=== PATIENT | female | born 1940 | race Caucasian/White ===

== ENCOUNTER → 2017-05-18 | Outpatient (CLI) | payer MEDICARE ==
--- NOTE | 2017-05-19 10:52 | MM ---
Reason for exam: screening (asymptomatic). Last mammogram was performed 1 year and 2 months ago. History: Patient is postmenopausal. Family history of breast cancer in grandmother. Physical Findings: A clinical breast exam by your physician is recommended on an annual basis and results should be correlated with mammographic findings. MG 3D Screening Mammo W/Cad Bilateral CC and MLO view(s) were taken. Prior study comparison: March 03, 2016, bilateral MG 3d screening mammo w/cad. February 20, 2015, bilateral MG screening mammo w CAD. February 15, 2014, bilateral MG screening mammo w CAD. There are scattered fibroglandular densities. Finding: There are numerous typically benign round, regional and scattered calcifications in both breasts. There is a chronic nodularity in the right breast. There is no discrete abnormality. ASSESSMENT: Benign, BI-RAD 2 RECOMMENDATION: Routine screening mammogram of both breasts in 1 year.
== END | disposition home or self-care (01) ==
LOC: RADMAMWWP 04-09 09:31
PROVIDERS: ATTEND Internal Medicine
DX: Z12.31 Encounter for screening mammogram for malignant neoplasm of breast (principal)
CPT/HCPCS: 77063; 77067

== ENCOUNTER → 2017-06-17 | Outpatient (CLI) | payer MEDICARE ==
--- NOTE | 2017-06-17 12:44 | EST ---
EXERCISE STRESS DATE OF SERVICE: 06/17/2017 AGE: 76 SEX: Female HT: 5'5" WT: 194 pounds PROTOCOL: CARDIOLITE TREADMILL STAGE: I DURATION OF EXERCISE: 4 minutes HEART RATE REST: 73 BLOOD PRESSURE REST: 159/86 MAXIMUM HEART RATE ACHIEVED: 139 MAXIMUM BLOOD PRESSURE: 217/90 85% MPHR: 122 100% MPHR: 144 METS: 5.8 INDICATIONS: Chest pain. CLINICAL INFORMATION: The patient was exercised for a total period of 4 minutes. A peak heart rate of 139, was achieved. Maximum blood pressure of 217/90 mmHg was noted. The test was terminated because patient got tired. Her resting EKG shows normal sinus rhythm with normal ID interval and QRS duration and normal ST-T waves. Occasional PACs were noted. No ST- segment depression suggestive of ischemia was noted. FINAL IMPRESSION: 1. This exercise test is not suggestive of ischemia. 2. The patient's exercise tolerance is average. 3. The results of the nuclear study will follow. EBONY / IJN: [id number] /
--- NOTE | 2017-06-17 13:07 | NM ---
EXAMINATION TYPE: NM stress cardiolite complete DATE OF EXAM: 06/17/2017 COMPARISON: NONE HISTORY: Chest pain TECHNIQUE: After the intravenous administration of 10.99 mCi Tc 99m Sestamibi - Rest images obtained 45 minutes post injection. The patient exercised using a NIYA protocol and 1 minute prior to peak exercise was injected with 27.1 mCi Tc 99m Sestamibi - Stress images obtained 5 minutes post injecti on. FINDINGS: Targeted heart rate was achieved during performance of the study. Review of stress and rest SPECT royer ges demonstrates some decreased residual uptake along the lateral wall the left ventricle on stress a s compared to rest images. Gated analysis shows normal wall motion with an estimated left ventricula r ejection fraction of 56 %. IMPRESSION: Findings suggest stress induced left ventricular myocardial ischemia as described. A Yellow message has been communicated to Kendall Maldonado MD via the [employer] system on 06/17/2017 1:04 PM, Message ID [id number].
== END | disposition home or self-care (01) ==
LOC: RADNMMAIN 07:47
PROVIDERS: ATTEND Internal Medicine
DX: R07.89 Other chest pain (principal)
CPT/HCPCS: 93017; 78452; A9500

== ENCOUNTER → 2017-06-25 | Day surgery (SDC) | payer MEDICARE ==
[2017-06-23 15:48] VITALS: BMI 32.1
[~2017-06-25] MED LIST: ALPRAZolam 0.25 MG TAB PO PRN; ASPIRIN 325 MG TAB PO ONE; ASPIRIN 81 MG PO SCH; HEPARIN SODIUM 1,000 UN/ML (10ML VL) ONE; IOHEXOL 350 MG/ML (PER ML) 100ML BTL INJ ONE; LIDOCAINE 2% INJ 20 MG/ML (20 ML MDV) ONE; LIDOCAINE 2% INJ 20 MG/ML SQ ONE; MIDAZOLAM 2 MG/2 ML VIAL IVP ONE; MIDAZOLAM 2 MG/2 ML VIAL ONE; NITROGLYCERIN SL TABS 0.4 MG TAB SUBLINGUAL ONE; SODIUM CHLORIDE 0.9% 1,000 ML IV SCH; SODIUM CHLORIDE 0.9% 1,000 ML in EMPTY BAG 1 BAG IV ONE; VERAPAMIL 2.5 MG/ML 2 ML AMP ONE; diphenhydrAMINE 50 MG/ML 1 ML VIAL IVP ONE; diphenhydrAMINE 50 MG/ML 1 ML VIAL ONE
[2017-06-25 08:34] VITALS: RESP 18
[2017-06-25] MEDS: VERAPAMIL SYRINGE (5 MG/10 ML) INTRAARTER ONE ×2 (10:05→10:16)
--- NOTE | 2017-06-25 10:52 | CC ---
CARDIAC CATHETERIZATION REPORT DATE OF SERVICE: 06/25/2017. PROCEDURE: Left heart catheterization and coronary angiography. PERFORMED BY: Dr. Hector Espitia CLINICAL INFORMATION: Mrs. Mitali Mohamud is a 76-year-old lady with a history of hypertension, hyperlipidemia, exertional chest pressure and shortness of breath. Because of these symptoms, she had a stress test, walked for over 4-1/2 minutes, developed shortness of breath but had lateral wall reversible defect. Therefore, was advised coronary angiography. Risks, benefits, options, rationale were explained to the patient and her . PROCEDURE NOTE: Under local anesthesia and strict aseptic precautions, a 6-Slovak introducer was placed in the right radial artery. Using an Ultimate 1 catheter, I performed selective coronary angiography and a pigtail catheter was used to check LV pressures. The LV gram was not performed. The catheter and sheath was taken out and TR band applied as per protocol and patient was sent to the room in a stable condition. She has no significant obstructive CAD. She was advised medical therapy with risk factor modification. She will be discharged later on today. The cardiac cath findings were discussed with the patient and her family members. I will see her in the office tomorrow in the afternoon. MODERATE CONSCIOUS SEDATION TIME: Moderate conscious sedation time 16 minutes. Patient was monitored closely. Oxygen saturation and vital signs were monitored closely. CARDIAC CATHETERIZATION FINDINGS: The left ventricular end-diastolic pressure was about 12 mmHg and there was no gradient across the aortic valve. CORONARY ANGIOGRAPHY FINDINGS: 1. RIGHT CORONARY ARTERY: Dominant vessel. No significant disease. Distally gives off a large PDA, a smaller PLV, supplies a fair amount of myocardium, has minor irregularities but no significant disease is noted. 2. LEFT MAIN CORONARY ARTERY: This is a long patent disease-free vessel that bifurcates into LAD and circumflex. 3. LEFT ANTERIOR DESCENDING CORONARY ARTERY: A good caliber vessel, extends along the anterior wall. It gives off a very high diagonal branch proximally and the diagonal again divides into 2 branches and actually a septal branch comes off from the diagonal. Interestingly, and then the LAD continues all the way to the apex giving additional septal branches. The LAD has about a mild 30% narrowing in the midportion. The diagonal which is of a good caliber and fair distribution has no significant disease. LAD runs all the way towards the apex, supplies a fair amount of myocardium. 4. LEFT POSTERIOR CIRCUMFLEX CORONARY ARTERY: Technically this is a nondominant vessel, gives off a first obtuse marginal, then a second obtuse marginal and continues distally as a posterolateral branch. There is no significant disease in the nondominant circumflex. 5. LEFT VENTRICULOGRAM: This was not performed. FINAL IMPRESSION: This patient has a right dominant system. Normal filling pressures, has mild irregularities. No significant disease. There is about a 30% mid LAD lesion of a diffuse type. There is no significant CAD and filling pressures are acceptable. RECOMMENDATIONS: Findings were discussed with the patient and family. I expect that she will be discharged later on today and I will see her in the office tomorrow. I already discussed the results by phone with Dr. Maldonado, the admitting doctor. MMRANDOLPH / SHELIA: [id number] /
[2017-06-25 11:58] VITALS: TEMP 97.8
[2017-06-25 15:24] VITALS: BP 135/65; PULSE 60
== END ==
LOC: CATHCVL 07:37
PROVIDERS: ATTEND Internal Medicine Interventional Cardiology
DX: I25.110 Atherosclerotic heart disease of native coronary artery with unstable angina pectoris (principal); I10 Essential (primary) hypertension; E78.5 Hyperlipidemia, unspecified; E78.00 Pure hypercholesterolemia, unspecified; Z79.82 Long term (current) use of aspirin; Z79.899 Other long term (current) drug therapy
CPT/HCPCS: 93458; C1894; J2001; J2250; J1200; Q9967; J1644

== ENCOUNTER → 2018-06-09 | Outpatient (CLI) | payer MEDICARE ==
--- NOTE | 2018-06-13 08:12 | MM ---
Reason for exam: screening (asymptomatic). Last mammogram was performed 1 year and 1 month ago. History: Patient is postmenopausal. Family history of breast cancer in grandmother. Physical Findings: A clinical breast exam by your physician is recommended on an annual basis and results should be correlated with mammographic findings. MG 3D Screening Mammo W/Cad Bilateral CC and MLO view(s) were taken. Prior study comparison: May 18, 2017, bilateral MG 3d screening mammo w/cad. March 03, 2016, bilateral MG 3d screening mammo w/cad. There are scattered fibroglandular densities. No significant changes when compared with prior studies. ASSESSMENT: Benign, BI-RAD 2 RECOMMENDATION: Routine screening mammogram of both breasts in 1 year.
== END | disposition home or self-care (01) ==
LOC: RADMAMWWP 10:15
PROVIDERS: ATTEND Internal Medicine
DX: Z12.31 Encounter for screening mammogram for malignant neoplasm of breast (principal)
CPT/HCPCS: 77063; 77067

== ENCOUNTER 2018-08-19 15:03 | Emergency (ER) | payer MEDICARE ==
--- NOTE | 2018-08-19 17:09 | XR ---
EXAMINATION TYPE: XR hand complete LT DATE OF EXAM: 08/19/2018 COMPARISON: NONE HISTORY: Cat bite at the thumb TECHNIQUE: 3 views FINDINGS: There is spurring at the first carpometacarpal joint. I see no fracture nor dislocation. Th ere is narrowing of the IP joint spaces with spurring. This is more noticeable at the DIP joint of th e index finger and middle finger. There is no sign of a foreign body. IMPRESSION: Osteoarthritis. No fracture seen.
[2018-08-19] MEDS ORDERED: AMOXIC-POT CLAV 875-125MG 1 EACH TAB PO STA (17:20)
[2018-08-19 17:37] VITALS: BP 130/78; PULSE 84; RESP 18; TEMP 98
--- NOTE | 2018-08-19 17:44 | ED ---
Animal Bite HPI - General Chief Complaint: Animal Bite Stated Complaint: Cat bite Time Seen by Provider: 08/19/18 15:20 Source: patient Mode of arrival: ambulatory Limitations: no limitations - History of Present Illness Initial Comments: Patient is 70-year-old female presenting to the emergency department after a cat bite. Patient states that incident occurred this morning when she was trying to pet her cat and it bit her on the anterior aspect of the proximal left thumb. She reports mild pain that is exacerbated with pressing on it. She reports pain with wrist flexion and movement of the thumb. She reports increased pain and swelling as time went on. This is her cat and she states the cat is up-to-date with her vaccinations. Her tetanus shot is up-to-date. Patient states she has no concern for rabies. - Related Data Home Medications Medication Instructions Recorded Confirmed Atorvastatin [Lipitor] 10 mg PO DAILY 06/23/17 06/25/17 Enalapril [Vasotec] 20 mg PO BID 06/23/17 06/25/17 Hydrochlorothiazide [Hydrodiuril] 25 mg PO DAILY 06/23/17 06/25/17 Metoprolol Tartrate [Lopressor] 12.5 mg PO DAILY 06/23/17 06/25/17 Multivit with Calcium,Iron,Min 1 each PO DAILY 06/23/17 06/25/17 [Women's Multivitamin] amLODIPine [Norvasc] 10 mg PO DAILY 06/23/17 06/25/17 Previous Rx's Medication Instructions Recorded Aspirin 81 mg PO DAILY chew 06/25/17 Amoxicillin/Potassium Clav 1 tab PO Q12HR #20 tab 08/19/18 [Augmentin 875-125 Tablet] Allergies Allergy/AdvReac Type Severity Reaction Status Date / Time No Known Allergies Allergy Verified 08/19/18 15:14 Review of Systems ROS Statement: Those systems with pertinent positive or pertinent negative responses have been documented in the HPI. ROS Other: All systems not noted in ROS Statement are negative. Past Medical History Past Medical History: Hyperlipidemia, Hypertension Additional Past Medical History / Comment(s): recent stress test, occasional chest heaviness recently History of Any Multi-Drug Resistant Organisms: None Reported Past Surgical History: Section, Orthopedic Surgery Additional Past Surgical History / Comment(s): C/S x2, D & C, liposuction, wrist surg & cyst removed from foot Past Anesthesia/Blood Transfusion Reactions: No Reported Reaction Past Psychological History: No Psychological Hx Reported Smoking Status: Never smoker Past Alcohol Use History: Occasional Past Drug Use History: None Reported - Past Family History Father Family Medical History: Cancer General Exam Limitations: no limitations General appearance: alert, in no apparent distress Head exam: Present: atraumatic, normocephalic, normal inspection Eye exam: Present: normal appearance. Absent: conjunctival injection ENT exam: Present: normal exam Neck exam: Present: normal inspection Respiratory exam: Present: normal lung sounds bilaterally. Absent: respiratory distress, wheezes, rales, rhonchi, stridor Cardiovascular Exam: Present: regular rate, normal rhythm, normal heart sounds Left Shoulder Exam: Present: normal inspection, full ROM Upper Arm exam: Present: normal inspection, full ROM Elbow exam: Present: normal inspection, full ROM Forearm Wrist exam: Present: normal inspection, full ROM. Absent: tenderness, swelling, abrasion, laceration Hand Wrist exam: Present: tenderness (Anterior aspect of proximal thumb. Tenderness on palpation), swelling (Local swelling), laceration (Puncture wound on the anterior aspect of proximal thumb), erythema (Local edema) Hand L/R Front: 1 - laceration (Puncture wound, cat bite) Neuro motor exam: Present: wrist extension intact, thumb opposition intact, thumb IP flexion intact (Limited flexion due to pain) Neurosensory exam: Present: 2-point discrimination Vascular: Present: normal capillary refill, radial pulse. Absent: vascular compromise Skin exam: Present: warm Course Vital Signs 08/19/18 15:12 Temperature 98.1 F Pulse Rate 80 Respiratory 20 Rate Blood Pressure 168/85 O2 Sat by Pulse 99 Oximetry Medical Decision Making - Medical Decision Making Patient is 70-year-old female presenting to the emergency department for a cat Bite on the left hand. X-ray of the left hand was obtained and is unremarkable for fracture. Patient was given Augmentin in the emergency department. Patient was prescribed a 10 day dose of Augmentin. Patient advised to follow up with primary care or return to emergency department if symptoms worsen. Case discussed with physician Disposition Clinical Impression: Bite by animal, Cat bite Disposition: HOME SELF-CARE Condition: Stable Instructions (If sedation given, give patient instructions): Animal Bite (ED) Additional Instructions: Please follow up with primary care or return to the emergency department if symptoms worsen. Continue taking antibiotic as indicated. Is patient prescribed a controlled substance at d/c from ED?: No Referrals: Kendall Maldonado MD [Primary Care Provider] - 1-2 days Time of Disposition: 17:53
== END 2018-08-19 17:37 | disposition home or self-care (01) ==
LOC: EC 15:03
DX: S61.032A Puncture wound without foreign body of left thumb without damage to nail, initial encounter (principal); E78.5 Hyperlipidemia, unspecified; I10 Essential (primary) hypertension; Z79.899 Other long term (current) drug therapy; W55.01XA Bitten by cat, initial encounter; Y93.89 Activity, other specified
CPT/HCPCS: 99283

== ENCOUNTER → 2019-11-02 | Outpatient (CLI) | payer MEDICARE ==
--- NOTE | 2019-11-02 16:36 | BD ---
EXAMINATION TYPE: Axial Bone Density DATE OF EXAM: 11/02/2019 COMPARISON: 10.07.2010 CLINICAL HISTORY: 79 YR OLD FEMALE....ICD-10 CODE: POST MENOPAUSAL Height: 62.5 Weight: 191 FRAX RISK QUESTIONS: Family History (Parent hip fracture): YES, SISTERS BOTH RISK FACTORS HISTORY OF: HX OF RT HAND FINGER A TEEN Family History of Osteoporosis: YES, SISTERS X2 WITH HIP FXS Active: YES Postmenopausal woman: YES AT 54 YRS OLD Hyperparathyroidism: NO Adrenal Insufficiency: NO MEDICATIONS: Additional Medications: BP MEDS, LIPITOR, VIT D, Additional History: HYPERTENSION, CHOLESTEROL, BORDERLINE DIABETIC, HX OF HEART CATHETERIZATION EXAM MEASUREMENTS: Bone mineral densitometry was performed using the [employer] System. Bone mineral density as measured about the Lumbar spine is: ----- L1-L4(G/cm2): 1.466 T Score Values are as follows: ----- L1: 1.6 ----- L2: 2.7 ----- L3: 2.8 ----- L4: 2.1 ----- L1-L4: 2.4 Bone mineral density has: Increased 7.8% since study of: 10.07.2010 Bone mineral density about the R hip (g/cm2): 1.049 Bone mineral density about the L hip (g/cm2): 1.045 T Score values are as follows: -----R Neck: -0.6 -----L Neck: -1.0 -----R Total: 0.3 -----L Total: 0.5 Bone mineral density has: Decreased -3.8% since study of: 10.07.2010 FRAX%s: THERE IS A 17.0% CHANCE FOR A MAJOR OSTEOPOROTIC FX AND A 7.9% FOR HIP.....PROBABILITY FOR FX IN 10 YRS TIME IMPRESSION: Normal (Values between +1 and -1 indicate normal bone mass). However, note that measurements border o n osteopenia at the left hip. Consider repeating this study in 5 years or sooner if there is some new clinical indication. NOTE: T-SCORE=SD OF THE YOUNG ADULT MEAN.
--- NOTE | 2019-11-03 09:52 | MM ---
Reason for exam: screening (asymptomatic). Last mammogram was performed 1 year and 5 months ago. History: Patient is postmenopausal. Family history of breast cancer in grandmother. Physical Findings: A clinical breast exam by your physician is recommended on an annual basis and results should be correlated with mammographic findings. MG 3D Screening Mammo W/Cad Bilateral CC and MLO view(s) were taken. Prior study comparison: June 09, 2018, bilateral MG 3d screening mammo w/cad. May 18, 2017, bilateral MG 3d screening mammo w/cad. There are scattered fibroglandular densities. Benign appearing bilateral calcifications. There is chronic nodularity in the right breast, stable. No significant changes when compared with prior studies. ASSESSMENT: Benign, BI-RAD 2 RECOMMENDATION: Routine screening mammogram of both breasts in 1 year.
== END | disposition home or self-care (01) ==
LOC: RADMAMWWP 10:19
PROVIDERS: ATTEND Internal Medicine
DX: Z12.31 Encounter for screening mammogram for malignant neoplasm of breast (principal); M85.88 Other specified disorders of bone density and structure, other site; Z78.0 Asymptomatic menopausal state
CPT/HCPCS: 77063; 77067; 77080

== ENCOUNTER → 2020-09-09 | Outpatient (CLI) | payer MEDICARE ==
--- NOTE | 2020-09-09 11:21 | US ---
EXAMINATION TYPE: US abdomen complete DATE OF EXAM: 09/09/2020 COMPARISON: NONE CLINICAL HISTORY: R74.01 Elevation of levels of liver transaminase l. Elevated liver enzymes EXAM MEASUREMENTS: Liver Length: 14.7 cm Gallbladder Wall: 0.2 cm CBD: 0.3 cm Spleen: 9.8 cm Right Kidney: 11.8 x 3.4 x 3.4 cm Left Kidney: 11.9 x 4.8 x 5.2 cm technical limitations due to large amount of overlying bowel content Pancreas: visualized portions appear wnl. The tail and head of the pancreas are poorly visualized. Liver: appears wnl Gallbladder: no evidence of stones Evidence for sonographic Hardin's sign: no CBD: appears wnl Spleen: wnl Right Kidney: no evidence of hydronephrosis Left Kidney: no evidence of hydronephrosis Upper IVC: wnl Abd Aorta: wnl The liver is homogenous. The intrahepatic portion of the IVC and proximal abdominal aorta are within normal limits. There is no evidence of cholelithiasis. Common bile duct is unremarkable. The visu alized portions of the pancreas are homogenous. The spleen is unremarkable. Kidneys are symmetric a nd free of hydronephrosis. No renal lesions are seen. IMPRESSION: 1. Study is limited due to overlying bowel gas. The head and tail of the pancreas are poorly visualiz ed. Otherwise unremarkable study.
== END | disposition home or self-care (01) ==
LOC: RADUSWWP 10:10
PROVIDERS: ATTEND Family Medicine
DX: R74.01 Elevation of levels of liver transaminase levels (principal); R74.8 Abnormal levels of other serum enzymes
CPT/HCPCS: 76700

== ENCOUNTER → 2020-11-04 | Outpatient (CLI) | payer MEDICARE ==
--- NOTE | 2020-11-05 12:34 | MM ---
Reason for exam: screening (asymptomatic). Last mammogram was performed 1 year ago. History: Patient is postmenopausal and history of other cancer. Family history of breast cancer in grandmother. Physical Findings: A clinical breast exam by your physician is recommended on an annual basis and results should be correlated with mammographic findings. MG 3D Screening Mammo W/Cad Bilateral CC and MLO view(s) were taken. Prior study comparison: November 02, 2019, bilateral MG 3d screening mammo w/cad. June 09, 2018, bilateral MG 3d screening mammo w/cad. There are scattered fibroglandular densities. ASSESSMENT: Negative, BI-RAD 1 RECOMMENDATION: Routine screening mammogram of both breasts in 1 year.
== END ==
LOC: RADMAMWWP 08:18
PROVIDERS: ATTEND Family Medicine
DX: Z12.31 Encounter for screening mammogram for malignant neoplasm of breast (principal); Z78.0 Asymptomatic menopausal state; Z80.3 Family history of malignant neoplasm of breast
CPT/HCPCS: 77063; 77067

== ENCOUNTER → 2021-12-02 | Outpatient (CLI) | payer MEDICARE ==
--- NOTE | 2021-12-03 08:59 | MM ---
Reason for Exam: Screening (asymptomatic). Last mammogram was performed 1 year(s) and 1 month(s) ago. Patient History: Menarche at age 12. First Full-Term at age 26. Postmenopausal. Other cancer. Maternal grandmother had breast cancer. Risk Values: Nataly 5 year model risk: 1.8%. NCI Lifetime model risk: 2.6%. Prior Study Comparison: 07/15/1994 Screening Mammogram, [facility]. 10/07/2010 Bilateral Screening Mammogram, [facility]. 11/02/2011 Bilateral Screening Mammogram, [facility]. 02/15/2014 Bilateral Screening Mammogram, [facility]. 02/20/2015 Bilateral Screening Mammogram, [facility]. 05/18/2017 Bilateral Screening Mammogram, [facility]. 06/09/2018 Bilateral Screening Mammogram, [facility]. 11/02/2019 Bilateral Screening Mammogram, [facility]. 11/04/2020 Bilateral Screening Mammogram, [facility]. Tissue Density: There are scattered fibroglandular densities. Findings: Analyzed By CAD. There is no suspicious group of microcalcifications or new suspicious mass in either breast. Benign-appearing bilateral calcifications. Stable chronic nodularity in the right breast. No significant change from prior examinations. Overall Assessment: Benign, BI-RAD 2 Management: Screening Mammogram of both breasts in 1 year. A clinical breast exam by your physician is recommended on an annual basis and results should be correlated with mammographic findings. Electronically signed and approved by: Murphy Stanley D.O.
== END | disposition home or self-care (01) ==
LOC: RADMAMWWP 14:51
PROVIDERS: ATTEND Family Medicine
DX: Z12.31 Encounter for screening mammogram for malignant neoplasm of breast (principal); Z78.0 Asymptomatic menopausal state; Z80.3 Family history of malignant neoplasm of breast
CPT/HCPCS: 77063; 77067

== ENCOUNTER → 2022-09-29 | Outpatient (CLI) | payer MEDICARE ==
--- NOTE | 2022-09-29 16:41 | US ---
EXAMINATION TYPE: US extremity nonvasc mass RT DATE OF EXAM: 09/29/2022 COMPARISON: NONE CLINICAL INDICATION: Female, 82 years old with history of R229 SWELLING MASS AND LUMP UNSPECIFIED; fa ll June [address] buttocks, large hematoma that has since gone down in size but patient can st ill feel lump TECHNIQUE: Right soft tissue buttocks scan FINDINGS: No fluid collection or solid masses seen at area of palpation. IMPRESSION: No evidence for organizing fluid collection or mass. Nothing to correlate patient's palpa ble abnormality. Finding likely representing resolving hematoma given history.
== END | disposition home or self-care (01) ==
LOC: RADUSWWP 14:54
PROVIDERS: ATTEND Family Medicine
DX: R22.9 Localized swelling, mass and lump, unspecified (principal)

== ENCOUNTER → 2022-12-31 | Outpatient (CLI) | payer MEDICARE ==
--- NOTE | 2023-01-01 09:07 | MM ---
Reason for Exam: Screening (asymptomatic). Last mammogram was performed 1 year(s) and 1 month(s) ago. Patient History: Menarche at age 12. First Full-Term at age 26. Postmenopausal. Patient has history of breast feeding. Maternal grandmother had breast cancer. Risk Values: Nataly 5 year model risk: 1.7%. NCI Lifetime model risk: 2.3%. Prior Study Comparison: 11/02/2019 Bilateral Screening Mammogram, [facility]. 11/04/2020 Bilateral Screening Mammogram, [facility]. 12/02/2021 Bilateral MG 3D screening mammo w/cad, [facility]. Tissue Density: The breast tissue is almost entirely fat. Findings: Analyzed By CAD. There is no suspicious group of microcalcifications or new suspicious mass. Benign-appearing calcifications bilaterally. Overall Assessment: Benign, BI-RAD 2 Management: Screening Mammogram of both breasts in [address] [facility] will attempt to contact patient to return for supplemental views and ultrasound if indicated. Patient should continue monthly self-breast exams. A clinical breast exam by your physician is recommended on an annual basis. This exam should not preclude additional follow-up of suspicious palpable abnormalities. Note on Nataly scores and lifetime risk: 1. A Nataly score greater than 3% is considered moderate risk. If this is the case, consider specialist referral to assess eligibility for a risk reducing agent. 2. If overall lifetime risk for the development of breast cancer is 20% or higher, the patient may qualify for future screening with alternating mammogram and breast MRI. Electronically signed and approved by: Jorge Luis Fernando DO
== END | disposition home or self-care (01) ==
LOC: RADMAMWWP 11:39
PROVIDERS: ATTEND Family Medicine
DX: Z12.31 Encounter for screening mammogram for malignant neoplasm of breast (principal); Z78.0 Asymptomatic menopausal state; Z80.3 Family history of malignant neoplasm of breast
CPT/HCPCS: 77063; 77067

== ENCOUNTER 2024-01-19 08:20 | Day surgery (SDC) | payer MEDICARE ==
[2024-01-17 10:53] VITALS: BMI 33.5
[2024-01-19] MEDS: IV FLUID CONTINUATION 1,000 ML IV ONE (09:11)
[2024-01-19] MEDS: LACTATED RINGERS 1,000 ML IV SCH (09:11)
[2024-01-19] MEDS: ONDANSETRON 4 MG/2 ML VIAL IVP ONE (09:13)
[2024-01-19] MEDS: DEXAMETHASONE SOD PHOSPHATE 4 MG/ML 1 ML VIAL IV ONE (09:14)
[2024-01-19 09:18] VITALS: TEMP 97.6
[2024-01-19] MEDS ORDERED: MIDAZOLAM 2 MG/2 ML VIAL ONE (09:42)
[2024-01-19] MEDS: MOXIFLOXACIN HCL 0.5% DROPS 3 ML BTL OP PRN (10:00)
[2024-01-19] MEDS: BALANCED SALT IRRIG SOLN COMB2 15 ML IRRIG.SOLN IRRIGATION ONE (10:00)
[2024-01-19] MEDS: FLUORESCEIN STRIPS 1 MG STRIP MISCELLANE PRN (10:00)
--- NOTE | 2024-01-19 10:24 | P.OP ---
Date of Procedure: 01/19/24 Preoperative Diagnosis: Salzmans recurrent erosion, right Postoperative Diagnosis: same Procedure(s) Performed: K debridement, OD Implants: Prokera slim Anesthesia: MAC Surgeon: Juanito Holguin Pathology: none sent Condition: stable Disposition: same day Indications for Procedure: poor vision Operative Findings: no complications, placed Prokera on surface after removing loose epithelium and superficial scar tissue.
[2024-01-19 10:35] VITALS: RESP 16
[2024-01-19 10:45] VITALS: BP 181/90; PULSE 70
--- NOTE | 2024-01-20 14:51 | OP ---
OPERATIVE REPORT DATE OF SERVICE : 01/19/2024 PROCEDURE: Corneal debridement of the right eye. 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 ANESTHESIA: Topical. ESTIMATED BLOOD LOSS: None. SPECIMEN TAKEN: None. NARRATIVE: After obtaining the appropriate consent, the patient was brought to the operating room. There, she was placed under cardiac monitoring, prepped and draped in the usual sterile manner. She was approached from her right temporal side and using dry Weck-Jessica sponges, the loose epithelial tissue of the cornea was gently removed. There were several small areas with subepithelial scarring which required removal with #4 Jeweler's forceps as well. Once 80% of the loose epithelial tissue was removed down to Bryan's membrane, the cornea was rinsed with balanced salt solution and a Prokera amniotic membrane device was placed centrally on the patient's cornea. A small piece of Tegaderm was placed over the lateral aspect of the eyelids to inhibit full opening of the eye. The patient then received 2 drops of 0.5% moxifloxacin. There were no complications from the procedure. She tolerated the procedure well and was returned to outpatient recovery in good condition. MMODL / IJN: [id number] /
== END 2024-01-19 11:16 | disposition home or self-care (01) ==
LOC: OR 08:20
PROVIDERS: ATTEND Ophthalmology
DX: H18.453 Nodular corneal degeneration, bilateral

== ENCOUNTER → 2024-02-09 | Outpatient (CLI) | payer MEDICARE ==
--- NOTE | 2024-02-10 08:04 | MM ---
Reason for Exam: Screening (asymptomatic). Last mammogram was performed 1 year(s) and 1 month(s) ago. Patient History: Menarche at age 12. First Full-Term at age 26. Postmenopausal. Patient has history of breast feeding. Maternal grandmother had breast cancer. Risk Values: Nataly 5 year model risk: 1.7%. NCI Lifetime model risk: 2.0%. Prior Study Comparison: 11/04/2020 Bilateral Screening Mammogram, [facility]. 12/02/2021 Bilateral MG 3D screening mammo w/cad, [facility]. 12/31/2022 Bilateral MG 3D screening mammo w/cad, [facility]. Tissue Density: The breasts are almost entirely fatty. Findings: Analyzed By CAD. Right breast: There is no suspicious group of microcalcifications or new suspicious mass. Benign-appearing calcifications right breast. Left breast: There is no suspicious group of microcalcifications or new suspicious mass. Benign-appearing calcifications left breast. Overall Assessment: Benign, BI-RAD 2 Management: Screening Mammogram of both breasts in [address] [facility] will attempt to contact patient to return for supplemental views and ultrasound if indicated. Patient should continue monthly self-breast exams. A clinical breast exam by your physician is recommended on an annual basis. This exam should not preclude additional follow-up of suspicious palpable abnormalities. Note on Nataly scores and lifetime risk: 1. A Nataly score greater than 3% is considered moderate risk. If this is the case, consider specialist referral to assess eligibility for a risk reducing agent. 2. If overall lifetime risk for the development of breast cancer is 20% or higher, the patient may qualify for future screening with alternating mammogram and breast MRI. [facility], , 02/10/2024 7:59 AM. Electronically signed and approved by: Jorge Luis Fernando DO
== END | disposition home or self-care (01) ==
LOC: RADMAMWWP 08:36
PROVIDERS: ATTEND Family Medicine
DX: Z12.31 Encounter for screening mammogram for malignant neoplasm of breast
CPT/HCPCS: 77063; 77067